=== PATIENT | male | born 1955 | race Caucasian/White ===

== ENCOUNTER → 2016-08-16 | Outpatient (CLI) | payer OTHER ==
[~2016-08-16] VITALS: Ht 177.8 cm; Wt 78.0 kg
[~2016-08-16] MED LIST: NOHOMEMEDICATIONS
--- NOTE | ~2016-08-16 | P ---
[facility] [place] [address] PROCEDURE REPORT Name: JAVI RIOJAS Room #: REG [facility]#: [id number] Admission: 08/16/16 Attend Phys: Cristian Delacruz MD Discharge: Date of : 57 Report #: [id number] THIS REPORT FOR: //name// CC: Marco Antonio Delacruz BRIEF HISTORY: The patient is a 60-year-old male with history of colon polyps for surveillance colonoscopy. PREOPERATIVE DIAGNOSIS: History of colon polyps. POSTOPERATIVE DIAGNOSIS: Normal colonoscopy. MEDICATIONS: Deep sedation with propofol per anesthesia. SPECIMEN: None. ESTIMATED BLOOD LOSS: None. PROCEDURE: Colonoscopy to cecum and terminal ileum. FINDINGS: Prior to propofol sedation, procedure of colonoscopy discussed with the patient as well as potential risks, benefits, and complications. He indicates he understands and desires to proceed. With the patient in left lateral decubitus position, digital examination was completed, which revealed no abnormalities. Subsequently, the [employer] video colonoscope was introduced into the rectum, advanced under direct vision to the cecum. Done with minimal difficulty. The cecum was identified by the ileocecal valve and the appendiceal orifice. I was able to visualize the distal segment of the terminal ileum, which was inspected and noted to be unremarkable. At that point, the scope was slowly withdrawn and careful circumferential views obtained including retroflexing the scope in the ascending colon. Upon slow withdrawal of the scope, the prep was noted to be excellent. The mucosa was within normal limits, normal vascular pattern, and normal light reflex. As we withdrew the scope, no polypoid lesions or mucosal changes were seen. He had normal mucosa throughout the entire colon. The scope was withdrawn in the rectum. Upon retroflexion, no abnormalities were seen. The scope was withdrawn. The patient tolerated the procedure well. CONDITION OF THE PATIENT UPON DISCHARGE: Following procedure, the patient drowsy, aroused, conversant and will be discharged home when fully ambulatory. INSTRUCTIONS TO THE PATIENT AND FAMILY AT THE TIME OF DISCHARGE: No polyps seen on today's exam. He had a diminutive polyp removed at time of his last colonoscopy. Therefore, at this point, follow up in 10 years would be [place] [address] [place] [address] PROCEDURE REPORT Name: BEULAHJAVI B Room #: REG [facility]#: [id number] Admission: 08/16/16 Attend Phys: Cristian Delacruz MD Discharge: Date of : 57 Report #: [id number] appropriate. He will return to the care of Dr. Marco Antonio Michael, return to see me as needed. <ELECTRONICALLY SIGNED> By: Cristian Delacruz MD 08/16/16 1714 0815 1042 Cristian Delacruz MD /nt
== END | disposition home or self-care (01) ==
LOC: GI 06:25
DX: Z86.010 Personal history of colon polyps (principal)
CPT/HCPCS: 62110; 62900

== ENCOUNTER → 2020-04-10 | Outpatient (CLI) | payer OTHER | LOC: LAB 11:25 | PROVIDERS: ATTEND Anesthesiology | DX: Z01.812 Encounter for preprocedural laboratory examination (principal); Z20.828 Contact with and (suspected) exposure to other viral communicable diseases ==